=== PATIENT | female | born 1975 | race Caucasian/White ===

== ENCOUNTER 2016-09-29 07:55 | Emergency (ER) | payer MEDICARE, MEDICAID ==
[~2016-09-29] VITALS: Ht 165.1 cm; Wt 71.2 kg
[~2016-09-29 07:55] MED LIST: METO10TA81 PO; ONDA4TAB10 SL
[2016-09-29 08:00] VITALS: BP 147/72
--- NOTE | 2016-09-29 08:08 | PHYS DOC ---
Past Medical History Past Medical History: Anxiety, Asthma, Depression, Diabetes-Type II, Hypertension, Hypothyroid, Migraines, MRSA Additional Past Medical Histor: CHRONIC PAIN Past Surgical History: Additional Past Surgical Histo: ABD. SX-HERNIA REPAIR, GASTRIC SLEEVE Alcohol Use: None Drug Use: None Adult General Chief Complaint Chief Complaint: TOE PROBLEM HPI HPI Patient is a 41 year old female with history of diabetes type 2, hypertension, anxiety, depression, asthma, hypothyroidism and neuropathy who presents today with this stabbed left little toe. Patient states she stubbed it on a bow case last night. Review of Systems Review of Systems Constitutional: Denies fever or chills [] Eyes: Denies change in visual acuity, redness, or eye pain [] Musculoskeletal: stabbed left little toe Integument: Denies rash or skin lesions [] Neurologic: Denies headache, focal weakness or sensory changes [] Endocrine: Denies polyuria or polydipsia [] Current Medications Current Medications Current Medications Medications (Trade) Dose Ordered Sig/Renata Start Time Stop Time Status Last Admin Dose Admin Acetaminophen/ Hydrocodone Bitart (Lortab 5/325) 1 tab 1X ONCE 09/29/16 08:15 09/29/16 08:16 DC Allergies Allergies Allergies Coded Allergies Type Severity Reaction Last Updated Verified Iodine and Iodide Containing Produc Allergy Unknown 03/22/16 Yes bupropion Allergy Unknown 03/22/16 Yes varenicline Allergy Unknown 03/22/16 Yes Physical Exam Physical Exam Constitutional: Well developed, well nourished, no acute distress, non-toxic appearance. [] HENT: Normocephalic, atraumatic, bilateral external ears normal, oropharynx moist, no oral exudates, nose normal. [] Skin: Left little toe with moderate bruising. Tenderness on palpation diffusely throughout the toe. Limited range of motion to the left fifth toe due to pain. + 2 left pedal pulse. Cap refill less than 2 seconds and left lower extremity. Sensation slightly decreased to the left fifth toe patient stated this is chronic due to neuropathy. Back: No tenderness, no CVA tenderness. [] Extremities: No tenderness, no cyanosis, no clubbing, ROM intact, no edema. [] Neurologic: Alert and oriented X 3, normal motor function, normal sensory function, no focal deficits noted. [] Psychologic: Affect normal, judgement normal, mood normal. [] Current Patient Data Vital Signs Vital Signs Date Time Temp Pulse Resp B/P (MAP) Pulse Ox O2 Delivery O2 Flow Rate FiO2 09/29/16 08:00 97.8 85 18 98 Room Air 97.8 EKG EKG [] Radiology/Procedures Radiology/Procedures []PATIENT: LAYNE WALKER ACCOUNT: [id number] : 1975 LOCATION: ER AGE: 41 SEX: F EXAM STATUS: PRE ER ORD. PHYSICIAN: SHALINI SEBASTIAN APRN REASON: little toe injury PROCEDURE: FOOT LEFT 3V Indication injury to the small toe. Pain. AP lateral and oblique views of the left foot were obtained. There is some soft tissue swelling. There is a minimally distracted fracture associated with the middle phalanx of the small toe. An additional bony abnormality is not seen. IMPRESSION: Acute, traumatic, minimally distracted fracture associated with the middle phalanx of the small toe DICTATED and SIGNED BY: KELLIE FERGUSON MD DATE: 09/29/16826 CC: PARISA NGUYEN; SHALINI SEBASTIAN APRN ~ Course & Med Decision Making Course & Med Decision Making Pertinent Labs and Imaging studies reviewed. (See chart for details) Evaluation shows patient has contusion to the left fifth toe. X-rays of the left foot interpreted by radiologist were positive for acute, traumatic, minimally distracted fracture associated with the middle phalanx of the small toe. Left fifth toe was cody taped to the fourth toe. Patient was provided orthopedic shoe. She was instructed to call the orthopedic doctor today and set up a follow-up appointment. She has medications for pain at home. Ice elevation encouraged. Dragon Disclaimer Dragon Disclaimer This electronic medical record was generated, in whole or in part, using a voice recognition dictation system. Departure Departure Impression: Primary Impression: Fracture of fifth toe, left, closed Disposition: 01 HOME, SELF-CARE Condition: STABLE Referrals: PARISA NGUYEN (PCP) PHONG OMER MD Follow-up next week Patient Instructions: Toe Fracture Additional Instructions: You were seen for left fifth toe fracture. Please wear the orthopedic shoe provided, no weight bearing on the fifth toe. Follow-up with orthopedic doctor by calling his office today to get a follow-up appointment. Ice and elevate the extremity. Problem Qualifiers Primary Impression: Fracture of fifth toe, left, closed Encounter type: initial encounter Qualified Codes: S92.502A - Displaced unspecified fracture of left lesser toe(s), initial encounter for closed fracture SHALINI SEBASTIAN APRN September 29, 2016 08:08
[2016-09-29] MEDS ORDERED: HYDROcodone/APAP 5/325MG 1 TAB TABLET PO ONE ×2 (08:15)
--- NOTE | 2016-09-29 08:31 | RAD ---
Indication injury to the small toe. Pain. AP lateral and oblique views of the left foot were obtained. There is some soft tissue swelling. There is a minimally distracted fracture associated with the middle phalanx of the small toe. An additional bony abnormality is not seen. IMPRESSION: Acute, traumatic, minimally distracted fracture associated with the middle phalanx of the small toe
== END 2016-09-29 09:18 | disposition home or self-care (01) ==
LOC: ER 07:55
DX: S92.502A Displaced unspecified fracture of left lesser toe(s), initial encounter for closed fracture (principal); F41.9 Anxiety disorder, unspecified; J45.909 Unspecified asthma, uncomplicated; F32.9 Major depressive disorder, single episode, unspecified; I10 Essential (primary) hypertension; E03.9 Hypothyroidism, unspecified; G43.909 Migraine, unspecified, not intractable, without status migrainosus; G89.29 Other chronic pain; E11.9 Type 2 diabetes mellitus without complications; Z88.8 Allergy status to other drugs, medicaments and biological substances; Z91.041 Radiographic dye allergy status; W45.8XXA Other foreign body or object entering through skin, initial encounter; Y93.89 Activity, other specified; Y92.89 Other specified places as the place of occurrence of the external cause; Y99.8 Other external cause status
CPT/HCPCS: 73630; 99284